=== PATIENT | female | born 1985 | race Two or more races ===

== ENCOUNTER 2016-10-14 05:33 | Day surgery (SDC) | payer OTHER ==
[~2016-10-14] VITALS: Ht 160 cm; Wt 95.8 kg
[2016-10-14] VITALS (12 sets, daily range): BP systolic 97–124; BP diastolic 58–73; PULSE 52–91; RESP 16–29; Ht 160 cm; Wt 95.8 kg
[2016-10-14] MEDS ORDERED: SOD CHLORIDE 0.9% 1,000 ML IV SCH (06:00)
[2016-10-14] MEDS ORDERED: CIPROFLOXACIN 400 MG in D5W 200 ML IVPB SCH (06:00)
[2016-10-14] MEDS ORDERED: BUPIVACAINE 0.25% (MPF) 30 ML INJ ONE (06:42)
[2016-10-14] MEDS ORDERED: PRE-NATAL VITAMINS (06:58)
[2016-10-14] MEDS ORDERED: BIRTH CONTROL (06:58)
[2016-10-14] MEDS ORDERED: FENTAnyl 50 MCG/ML VIAL ONE (07:29)
[2016-10-14] MEDS ORDERED: NEOSTIGMINE 3 MG/3 ML SYRINGE ONE (08:15)
[2016-10-14] MEDS ORDERED: ROCURONIUM 50 MG INJ ONE (08:15)
[2016-10-14] MEDS ORDERED: SUCCINYLCHOLINE CHLORIDE 100 MG/5 ML SYG IV ONE (08:15)
[2016-10-14] MEDS ORDERED: LIDOCAINE 2% (SDV) 5 ML INJ ONE (08:15)
[2016-10-14] MEDS ORDERED: GLYCOPYRROLATE 0.4 MG INJ ONE (08:15)
[2016-10-14] MEDS ORDERED: PROPOFOL 40 ML ONE (08:15)
[2016-10-14] MEDS ORDERED: ROPIVACAINE 0.5 % 30 ML VIAL ONE (08:15)
[2016-10-14] MEDS ORDERED: MEPERIDINE 25 MG INJ IV PRN (08:30)
[2016-10-14] MEDS ORDERED: HYDROCODONE/APAP (5/325) TAB PO ONE (08:30)
[2016-10-14] MEDS ORDERED: FENTAnyl 50 MCG/ML VIAL IV PRN ×2 (08:30)
[2016-10-14] MEDS ORDERED: OXYCODONE/ACETAMINOPHEN (5/325) TAB PO PRN (08:30)
[2016-10-14] MEDS ORDERED: HYDROmorphONE (0.2 MG/ML) 10ML SYG IV PRN (08:30)
[2016-10-14] MEDS ORDERED: METOCLOPRAMIDE 10 MG INJ IV PRN (08:30)
[2016-10-14] MEDS ORDERED: DIPHENHYDRAMINE 50 MG INJ IV PRN (08:30)
[2016-10-14] MEDS: HYDROmorphONE (0.2 MG/ML) 10ML SYG IV PRN ×4 (08:34→08:51)
--- NOTE | 2016-10-14 09:34 | OPR ---
DATE OF OPERATION: 10/14/2016 INDICATION: This is a 31-year-old female with symptomatic gallstones. She requests surgical excisi on. The risks, alternatives, benefits, and personnel were discussed with the patient. Patient expr essed understanding and consents to the operation. PREOPERATIVE DIAGNOSIS: Symptomatic gallstones. POSTOPERATIVE DIAGNOSIS: Symptomatic gallstones. OPERATION: Laparoscopic cholecystectomy. SURGEON: Hernando Lopez MD SPECIMENS: Gallbladder. COMPLICATIONS: None. ANESTHESIA: General. PROCEDURE: The patient was taken to the OR and prepped and draped in the usual sterile fashion. Cisse rgical timeout was performed. IV antibiotics were given. Infraumbilical transverse incision is mad e with a 15 blade. Dissection cautery was carried down to the fascia which was divided with curved Chang scissors. An 0 Vicryl U-stitch was placed into the fascia. Balloon Darío trocar was introduc ed. Pneumoperitoneum was established. Midepigastric 12 mm optical trocar, right upper quadrant, ri ght upper flank 5 mm optical trocars are placed under direct visualization. Upon initial inspection there were some adhesions to the gallbladder. The cystic duct was then identified. The critical v iew was established. The cystic duct and cystic artery are divided using a 35 mm [place] vascular l oad stapler. Clips were placed along the staple line for reinforcement. The gallbladder was taken off the gallbladder bed. There was good hemostasis. Gallbladder was retrieved using EndoCatch bag. Ports were removed under direct visualization. The 0 Vicryl U-stitch was tied down. Skin was rogerio sed using chris. Local anesthesia was injected. Dry dressings were applied. Dictated By: HERNANDO LOPEZ MD SB/PRAVEENA Conf#: [id number] DID#: [id number]
== END 2016-10-14 11:25 | disposition home or self-care (01) ==
LOC: SDS 05:33
PROVIDERS: ATTEND Surgery
DX: K80.10 Calculus of gallbladder with chronic cholecystitis without obstruction (principal)
CPT/HCPCS: 47562; 88304; J0330; J1170; J2710; J2765; J2795; J3010; Z7512; Z7610